=== PATIENT | male | born 2000 | race African-American/Black ===

== ENCOUNTER 2025-01-08 12:40 | Emergency (ER) | payer OTHER, SELFPAY ==
--- NOTE | 2025-01-08 12:44 | ED_ITS ---
HPI - Skin/Abscess/Foreign Bdy General Chief complaint: Skin/Abscess/Foreign Body Stated complaint: Rash Time Seen by Provider: 01/08/25 13:05 Source: patient and RN notes reviewed Mode of arrival: ambulatory Limitations: no limitations History of Present Illness HPI narrative: 24-year-old male presents with concern for rash on his neck. Reports he has drainage. Reports are slightly itchy. Reports 2 members of his family have impetigo. MD complaint: rash Related Data Allergies Allergy/AdvReac Type Severity Reaction Status Date / Time No Known Allergies Allergy Mild Verified 01/08/25 12:48 Review of Systems Review of Systems: CONSTITUTIONAL: Denies malaise, chills, sweats, or fever. EYES: Denies redness, or discharge. ENT: Denies rhinorrhea, congestion, swollen lips, swollen tongue CARDIOVASCULAR: Denies chest pain, palpitations, or edema. RESPIRATORY: Denies cough or dyspnea. GASTROINTESTINAL: Denies abdominal pain, nausea, vomiting SKIN: Reports rash to the neck with drainage MUSCULOSKELETAL: Denies joint pain or myalgia. NEUROLOGIC: Denies headache. All systems reviewed & are unremarkable except as noted in HPI and below PMFSH Social History Social History Gender identity (if verbalized by the patient): Male Comments At time of signature, agree with nursing past medical, surgical, social and family history. There is no relevant family history pertinent to the presenting complaint Exam Narrative: GENERAL: Well-appearing, well-nourished, and in no acute distress. HEAD: Normocephalic, atraumatic. EYES: PERRLA, conjunctivae clear, and EOMI. ENT: Mucous membranes moist. Oropharynx without edema, erythema or lesions. NECK: Supple. No lymphadenopathy CHEST: Clear to auscultation. No respiratory distress. HEART: Regular rate and rhythm. SKIN: Warm, dry. Patches of open skin with honey-colored crust noted to the anterior neck NEURO: Alert and oriented x3. PSYCH: Normal mood and affect Course Course Emergency Course: Patient is aware of diagnosis, understands and agrees to treatment plan. Anticipatory guidance given. Patient agrees to follow-up as directed and is aware of reasons to seek care at the emergency department. Portions of this record may have been created with voice recognition software Level of Care: Express Care Visit Vital Signs Vital signs: Vital Signs Temperature 97.5 F L 01/08/25 12:56 Pulse Rate 64 01/08/25 12:56 Respiratory Rate 18 01/08/25 12:56 Blood Pressure 126/73 01/08/25 12:56 Pulse Oximetry 100 01/08/25 12:56 Oxygen Delivery Room Air 01/08/25 12:56 Temperature 97.5 F L 01/08/25 12:56 Pulse Rate 64 01/08/25 12:56 Respiratory Rate 18 01/08/25 12:56 Blood Pressure 126/73 01/08/25 12:56 Pulse Oximetry 100 01/08/25 12:56 Oxygen Delivery Room Air 01/08/25 12:56 Reviewed. MDM - Skin/Abscess/Foreign Bdy MDM Narrative Medical decision making narrative: Does not appear at this time to be erythema multiforme, bullous, SJS, TEN; no evidence at this time to suggest RMSF, endocarditis or Lyme disease; patient looks well, nontoxic and is tolerating oral intake; no neurologic signs or symptoms; no headache, photophobia or neck pain; afebrile; appropriate for initial outpatient treatment; discussed the importance of follow-up, patient agrees; question, viral exanthema, contact dermatitis, allergic dermatitis, eczema, urticaria, impetigo. No soft palate or uvula edema, no tongue, lip edema or other mucosal involvement, no respiratory compromise, no stridor, no wheezing, no wheezing, no history of syncope, no hypotension, no nausea, vomiting, or diarrhea. Instructed patient to go to nearest ER immediately for any worsening symptoms including but not limited to: fever, spreading rash, pain, sore throat, headache, dizziness, chest pain, trouble breathing, or any symptoms concerning to the patient. Critical Care Time Critical Care Time Critical Care Time: No Discharge Plan Discharge Clinical Impression: Impetigo Patient Disposition: Home Condition: Stable Instructions: Antibiotic Form, Impetigo (ED) Additional Instructions: 1) Please follow-up with your primary care doctor as needed. 2) If you have any urgent concerns please go to the ER. 3) Please take medications as prescribed and continue taking your home medications as usual. 4) Please read and follow information included in discharge instructions. Patient Language: Salvadorean Prescriptions: New mupirocin 2 % ointment 1 applic topical BID 7 Days Qty: 22 0RF sulfamethoxazole-trimethoprim 800-160 mg tablet 1 tablet PO Q12H 7 Days Qty: 14 0RF Follow-up/Referrals: UNKNOWN,DOCTOR [Non-Staff] Stand Alone Forms: Work/School Release IP Time of Disposition: 13:13
[2025-01-08 12:56] VITALS: BP 126/73; PULSE 64; RESP 18; TEMP 36.4; O2SAT 100
== END 2025-01-08 13:20 | disposition home or self-care (01) ==
PROVIDERS: Emergency Provider Nurse Practitioner
DX: L01.00 Impetigo, unspecified (principal)
CPT/HCPCS: 99213; G0463

== ENCOUNTER 2025-02-25 17:48 | Emergency (ER) | payer OTHER, SELFPAY ==
[2025-02-25 18:16] VITALS: BP 128/83; PULSE 55; RESP 18; TEMP 36.4; O2SAT 100
[2025-02-25] MEDS: DACRIOSE EYE IRRIGATION 118 ML BOTTLE LEFT EYE (18:54)
[2025-02-25] MEDS: FLUORESCEIN SOD 1 MG/STRIP LEFT EYE (18:55)
[2025-02-25] MEDS: TETRACAINE HCL 0.5% OPHTH SOLN 4 ML BTL LEFT EYE (18:55)
--- NOTE | 2025-02-25 18:55 | ED_ITS ---
HPI - Eye Problem General Chief complaint: Eye Problems Stated complaint: lt eye irritation Time Seen by Provider: 02/25/25 18:55 Source: patient and RN notes reviewed Mode of arrival: ambulatory Limitations: no limitations History of Present Illness HPI Narrative: 24-year-old male presents Express Care complaining of left eye injury approximately 2 days ago. Patient said he was waking up in bed when he turns hi s face and injury to his left eye on a metal railing of his bed with his eye open. Patient believes he cut his eye. Since then patient reports redness, photophobia and watery discharge. Patient denies any eye pain, headaches, nausea, vomiting, fevers, abnormal discharge, or any other symptoms. Patient says symptoms are not getting better. Patient tetanus is up today. Related Data Allergies Allergy/AdvReac Type Severity Reaction Status Date / Time No Known Allergies Allergy Mild Verified 02/25/25 18:47 Review of Systems Review of Systems: CONSTITUTIONAL: Denies fever, chills, or sweats. EYES: Denies visual changes Positive for redness and discharge. ENT: Denies rhinorrhea, congestion, sore throat, or otalgia. CARDIOVASCULAR: Denies chest pain, palpitations, or edema. RESPIRATORY: Denies cough or dyspnea. GASTROINTESTINAL: Denies abdominal pain, nausea, vomiting, or diarrhea. GENITOURINARY: Denies dysuria or hematuria. SKIN: Denies rash or itching. MUSCULOSKELETAL: Denies back pain, joint pain, or myalgia. NEUROLOGIC: Denies headache, numbness, or weakness. PSYCHIATRIC: Denies anxiety or depression. All other systems reviewed are negative, except as documented in HPI. PMFSH Social History Social History Gender identity (if verbalized by the patient): Male Comments At the time of my signature, I reviewed and agree with the nursing past medical, surgical, social, and family history. There is no relevant family history pertinent to the patient complaint. Exam Narrative: GENERAL: This is a well-nourished, well-developed adult, in no apparent distress. They are non ill-appearing, nontoxic appearing. HEAD: normocephalic, atraumatic. EYES: Sclerae clear/white. Left Conjunctiva injected with watery discharge. My conjunctiva normal. Vision is grossly intact. Extraocular movements intact. Pupils PERRLA. Wood's lamp exam of left eye with fluorescein stain reveals corneal abrasion. No aqueous humor or dendritic lesions. Eversion of left upper and lower eyelids reveals no retained foreign body. Left and right upper and lower eyelids are normal. No hyphema or subconjunctival hemorrhage. EARS: External ears normal, Hearing grossly intact. NOSE: External nose normal THROAT: Mucous membranes moist, NECK: Neck supple, CARDIOVASCULAR: Regular rate and rhythm RESPIRATORY: Respiratory rate normal, respiratory effort nonlabored, no respiratory distress SKIN: warm, Dry, intact with no suspicious lesions or rash, good texture and turgor. NEURO: awake, alert, and oriented to person, place and time. There were no obvious focal neurologic abnormalities. EXTREMITIES: No joint tenderness, effusion, or edema noted. BACK: Nontender without deformity. No CVA tenderness. Course Course Emergency Course: Portions of this record may have been created with voice recognition software Level of Care: Express Care Visit Vital Signs Vital signs: Vital Signs Temperature 97.6 F 02/25/25 18:16 Pulse Rate 55 L 02/25/25 18:16 Respiratory Rate 18 02/25/25 18:16 Blood Pressure 128/83 02/25/25 18:16 Pulse Oximetry 100 02/25/25 18:16 Temperature 97.6 F 02/25/25 18:16 Pulse Rate 55 L 02/25/25 18:16 Respiratory Rate 18 02/25/25 18:16 Blood Pressure 128/83 02/25/25 18:16 Pulse Oximetry 100 02/25/25 18:16 Reviewed MDM - Eye Problem MDM Narrative Medical decision making narrative: Patient's corneal abrasion. No evidence of globe rupture. Will give patient erythromycin ointment. Discussed physical exam findings. Advised supportive measures and signs/symptoms to go to the ER. Pt is appropriate for outpt treatment and f/u. Differential Diagnosis Differential diagnosis: Likely corneal abrasion, conjunctivitis and corneal ulcer Critical Care Time Critical Care Time Critical Care Time: No Discharge Plan Discharge Clinical Impression: Corneal abrasion Qualifiers: Encounter type: initial encounter Laterality: left Qualified Code(s): S05.02XA - Injury of conjunctiva and corneal abrasion without foreign body, left eye, initial encounter Patient Disposition: Home Condition: Stable Instructions: Antibiotic Form, Corneal Abrasion (ED) Additional Instructions: Corneal abrasions will heal in 1-3 days. You can wear sunglasses or stay in low light to avoid light sensitivity. Use erythromycin ointment as directed. Do not touch or rub your eye. Use over the counter lubricating eye drops as needed for irritation Do not wear contact lenses until issue is resolved You may take Tylenol or ibuprofen for pain follow instructions on the bottle. Follow-up with PCP or credit underwriter if condition is not improving in 2-3days. Go to the ER he developed severe eye pain, vision changes, vision loss, headaches, nausea, vomiting, fevers, or any serious concerns. [facility] [phone] [facility] [phone] [facility] [phone] [facility] [phone] Patient Language: [place] Prescriptions: New erythromycin 5 mg/gram (0.5 %) ointment 0.5 inch LEFT EYE QID 5 Days Qty: 3.5 0RF Follow-up/Referrals: PHYSICIAN,JOB BOSS [Primary Care Provider, Internal Medicine] Time of Disposition: 19:05
== END 2025-02-25 19:17 | disposition home or self-care (01) ==
DX: S05.02XA Injury of conjunctiva and corneal abrasion without foreign body, left eye, initial encounter (principal); W22.03XA Walked into furniture, initial encounter
CPT/HCPCS: 99213; A9270; G0463